=== PATIENT | female | born 1995 | race African-American/Black ===

== ENCOUNTER 2021-11-22 23:42 | Inpatient (IN) ==
[2021-11-23] MEDS ORDERED: CARBOPROST TROMETHAMINE 250 MCG/ML AMP IM PRN (00:41)
[2021-11-23] MEDS ORDERED: miSOPROStoL 200 MCG TABLET RECTAL PRN (00:41)
[2021-11-23] MEDS ORDERED: TRANEXAMIC ACID 1,000 MG in SODIUM CHLORIDE 0.9% 100 ML IV PRN (00:41)
[2021-11-23] MEDS ORDERED: METHYLERGONOVINE 0.2 MG/1 ML AMP IM PRN (00:41)
[2021-11-23] MEDS ORDERED: ONDANSETRON 4 MG/2 ML VIAL IV PRN (00:41)
[2021-11-23] MEDS ORDERED: OXYTOCIN/LR 20 UNIT/1,000 ML BAG IV PRN (00:41)
[2021-11-23 01:06] LABS: Basophils % 0.3 % (0.0-0.8); Eosinophils % 0.3 % (0.00-10.9); Hematocrit 33.6 VOL% (35.7-47.0); Hemoglobin 10.9 GM/DL (12.0-16.0); Immature Granulocytes % 1.7 %; Immature Granulocytes Absolute 0.13 #; Lymphocytes # 1.4 10*3/uL (1.4-4.0); Lymphocytes % 18.7 % (21.3-54.2); Mean Corpuscular HGB Conc 32.4 GM/DL (32-36); Mean Corpuscular Volume 91.1 FL (87-102); Mean Platelet Volume 10.5 FL (9.6-12.0); Monocytes # 0.7 10*3/uL (0.11-0.8); Monocytes % 9.4 % (1.7-12.7); NRBC # 0.02 10*3/uL; Neutrophils % 69.6 % (38.7-73.9); Platelet Count 206 T/CUMM (130-400); Red Blood Count 3.69 MC/CUMM (3.8-5.5); Red Cell Distribution Width 14.6 % (9.3-17.3); White Blood Count 7.5 T/CUMM (4-12)
[2021-11-23 01:15] LABS: Bacteria,Urine Occasional /HPF (Few); Mucus,Urine Occasional /LPF (Occasional); RBC,Urine 2 /HPF (0-4); Squamous Epithelial Cell,Urine Few /HPF (0-10)
[2021-11-23 01:16] LABS: Glucose,Urine (UA) Negative (Negative); Ketones,Urine Negative (Negative); Nitrite,Urine Negative (Negative); Protein,Urine Negative (Negative); Urine Appearance Slightly Cloudy (Clear); Urine Color Yellow (Yellow); Urine Specific Gravity 1.025 (1.001-1.035)
[2021-11-23 01:17] LABS: Bilirubin,Urine Negative (Negative); Blood, Urine Trace mg/dL (Negative)
[2021-11-23 01:25] LABS: Bilirubin,Total 0.4 MG/DL (0.20-1.00); Calcium 9.6 MG/DL (8.5-10.1); Potassium 3.9 MMOL/L (3.5-5.1); Total Protein 6.9 G/DL (6.4-8.2)
[2021-11-23 03:33] LABS: Rubella Antibody IgG Result Reactive (NonReactive)
[2021-11-23 03:34] LABS: Hepatitis B Surface Ag Quant < 0.10 Index; Hepatitis B Surface Ag Result Non-Reactive (NonReactive)
[2021-11-23 03:48] LABS: HIV Antigen/Antibody Result Nonreactive (Nonreactive)
[2021-11-23] MEDS: LACTATED RINGERS 1,000 ML IV PRN (12:55)
[2021-11-23] MEDS: OXYTOCIN/LR 20 UNIT/1,000 ML BAG IV SCH (12:58)
[2021-11-24] MEDS: LACTATED RINGERS 1,000 ML IV PRN ×2 (01:34→09:41)
[2021-11-24] MEDS ORDERED: BUTORPHANOL 2 MG/ML VIAL IV PRN (08:45)
[2021-11-24] MEDS ORDERED: PROMETHAZINE 25 MG/1 ML VIAL IM ONE (10:33)
[2021-11-24] MEDS ORDERED: LACTATED RINGERS 1,000 ML IV ONE (10:33)
[2021-11-24] MEDS ORDERED: ePHEDrine 50 MG/ML VIAL IV PRN (10:33)
[2021-11-24] MEDS ORDERED: hydrOXYzine HCL 25 MG/1 ML VIAL IM PRN (10:33)
[2021-11-24] MEDS ORDERED: diphenhydrAMINE 50 MG/1 ML VIAL IV PRN ×2 (10:33)
[2021-11-24] MEDS ORDERED: NALOXONE 0.4 MG/ML VIAL IV PRN (10:33)
[2021-11-24] MEDS ORDERED: CITRIC ACID/SODIUM CITRATE 30 ML UDCUP PO ONE (10:33)
[2021-11-24] MEDS ORDERED: FAMOTIDINE 20 MG/2 ML VIAL IV ONE ×2 (10:33→20:28)
[2021-11-24] MEDS: fentaNYL 2 MCG/ROPIV 0.2% EPID 100 ML EPIDURAL SCH ×2 (11:30→19:25)
[2021-11-24 12:45] LABS: RBC,Urine 1 /HPF (0-4); Squamous Epithelial Cell,Urine Occasional /HPF (0-10)
[2021-11-24] MEDS: OXYTOCIN/LR 20 UNIT/1,000 ML BAG IV SCH (12:46)
[2021-11-24 12:47] LABS: Bilirubin,Urine Negative (Negative); Blood, Urine Trace mg/dL (Negative); Glucose,Urine (UA) Negative (Negative); Ketones,Urine Negative (Negative); Nitrite,Urine Negative (Negative); Protein,Urine Negative (Negative); Urine Appearance Clear (Clear); Urine Color Yellow (Yellow); Urine Urobilinogen 0.2 eU/dL (<2.0)
[2021-11-24] MEDS ORDERED: ACETAMINOPHEN 500 MG TABLET PO PRN (18:45)
[2021-11-24] MEDS ORDERED: AMPICILLIN INJ 2,000 MG in SODIUM CHLORIDE 0.9% 100 ML IV SCH (19:00)
[2021-11-24 19:24] LABS: Basophils % 0.1 % (0.0-0.8); Hematocrit 35.9 VOL% (35.7-47.0); Hemoglobin 11.4 GM/DL (12.0-16.0); Immature Granulocytes % 0.7 %; Immature Granulocytes Absolute 0.08 #; Lymphocytes # 0.9 10*3/uL (1.4-4.0); Lymphocytes % 7.9 % (21.3-54.2); Mean Corpuscular HGB Conc 31.8 GM/DL (32-36); Mean Corpuscular Volume 92.5 FL (87-102); Mean Platelet Volume 10.7 FL (9.6-12.0); Monocytes # 0.8 10*3/uL (0.11-0.8); Monocytes % 7.3 % (1.7-12.7); Platelet Count 202 T/CUMM (130-400); Red Blood Count 3.88 MC/CUMM (3.8-5.5); Red Cell Distribution Width 14.6 % (9.3-17.3); White Blood Count 10.8 T/CUMM (4-12)
[2021-11-24] MEDS ORDERED: OXYTOCIN 10 UNIT/ML VIAL ONE ×2 (20:22→20:37)
[2021-11-24] MEDS ORDERED: OXYTOCIN/LR 30 UNIT/1,000 ML BAG IV PRN (20:28)
[2021-11-24] MEDS ORDERED: ceFAZolin 2,000 MG/50 ML DUPLEX IV PRN (20:28)
[2021-11-24] MEDS ORDERED: LIDOCAINE MPF 2% /EPI 20 ML VIAL ONE (20:38)
[2021-11-24] MEDS ORDERED: buprenorphine HCL 0.3 MG/ML VIAL ONE (20:38)
[2021-11-24] MEDS ORDERED: PHENYLEPHRINE 1 MG/10 ML SYRINGE IV ONE (21:04)
[2021-11-24] MEDS ORDERED: MIDAZOLAM 2 MG/2 ML VIAL ONE (21:13)
[2021-11-24] MEDS ORDERED: RHO(D) IMMUNE GLOBULIN 300 MCG SYRINGE IM ONE (21:38)
[2021-11-24] MEDS ORDERED: OXYTOCIN/LR 20 UNIT/1,000 ML BAG IV ONE (21:38)
[2021-11-24] MEDS ORDERED: ACETAMINOPHEN 325 MG TABLET PO PRN (21:38)
[2021-11-24] MEDS ORDERED: ONDANSETRON 4 MG/2 ML VIAL IV PRN (21:38)
[2021-11-24] MEDS ORDERED: MAGNESIUM HYDROXIDE SUSP 30 ML UDCUP PO PRN (21:38)
[2021-11-24 21:51] LABS: Cord Arterial Blood HCO3 20.1 MMOL/L
[2021-11-24 21:54] LABS: Cord Venous Blood HCO3 21.9 MMOL/L; Cord Venous Blood PCO2 40.4 MMHG; Cord Venous Blood PO2 35.7
[2021-11-24] MEDS ORDERED: LACTATED RINGERS 1,000 ML IV SCH (22:00)
[2021-11-25] MEDS ORDERED: ACETAMINOPHEN 500 MG TABLET PO SCH (01:00)
[2021-11-25] MEDS: KETOROLAC 30 MG/1 ML VIAL IV SCH ×3 (01:48→13:47)
[2021-11-25 06:07] LABS: Basophils % 0.2 % (0.0-0.8); Hematocrit 29.4 VOL% (35.7-47.0); Hemoglobin 9.2 GM/DL (12.0-16.0); Immature Granulocytes % 0.8 %; Immature Granulocytes Absolute 0.08 #; Lymphocytes # 1.2 10*3/uL (1.4-4.0); Lymphocytes % 11.2 % (21.3-54.2); Mean Corpuscular HGB Conc 31.3 GM/DL (32-36); Mean Corpuscular Volume 92.2 FL (87-102); Mean Platelet Volume 10.9 FL (9.6-12.0); Monocytes % 9.1 % (1.7-12.7); Neutrophils % 78.7 % (38.7-73.9); Platelet Count 159 T/CUMM (130-400); Red Blood Count 3.19 MC/CUMM (3.8-5.5); Red Cell Distribution Width 14.5 % (9.3-17.3); White Blood Count 10.6 T/CUMM (4-12)
[2021-11-25] MEDS: MULTIVITAMIN (PRENATAL) TABLET PO SCH (08:53)
[2021-11-25] MEDS: SIMETHICONE CHEW 80 MG TABLET PO PRN ×2 (08:53→20:07)
[2021-11-25] MEDS: DOCUSATE SODIUM 100 MG CAPSULE PO SCH ×2 (08:53→20:07)
[2021-11-25] MEDS: IBUPROFEN 800 MG TABLET PO PRN (18:32)
[2021-11-26] MEDS: IBUPROFEN 800 MG TABLET PO PRN ×2 (02:13→10:00)
[2021-11-26] MEDS: DOCUSATE SODIUM 100 MG CAPSULE PO SCH (09:52)
[2021-11-26] MEDS: MULTIVITAMIN (PRENATAL) TABLET PO SCH (09:52)
[2021-11-26 14:29] VITALS: BP 125/72
== END 2021-11-26 13:15 | disposition home or self-care (01) | DRG 540 ==
LOC: N.LD 23:42 → N.OB 11-25 00:30
PROVIDERS: ADMIT Obstetrics & Gynecology; ATTEND Obstetrics & Gynecology
PROC: LDCSECT (ICD-10-PCS; 2021-11-24 21:00)